=== PATIENT | male | born 1945 | race American Indian/Alaskan Native ===

== ENCOUNTER 2018-02-23 09:54 | Outpatient (CLI) | payer MEDICARE ==
--- NOTE | 2018-02-24 12:26 | Vascular Lab Report ---
FINAL REPORT EXAM: VL RENAL VASCULATURE HISTORY: RENAL ARTERY DUPLEX, CHRONIC KIDNEY DIDEASE STAGE 2 COMPARISON: None. TECHNIQUE: Duplex Doppler ultrasound of the renal arteries and aorta was performed. FINDINGS: The right kidney measures 10.2 centimeters in length and is normal in morphology. There is normal cor tical thickness. There is no hydronephrosis. There is no echogenic focus or mass. The left kidney is poorly visualized and is very echogenic. The aorta is normal in appearance. There are normal waveforms of the main right renal artery with sharp systolic upstrokes. Peak systoli c velocity is 82.7 centimeters/ second. There are normal waveforms of the main left renal artery with sharp systolic upstrokes. Peak systolic velocity is 74.4 centimeters/second. Peak systolic velocity of the aorta is 35.4 centimeters/second. The peak systolic velocity ratio between the right renal artery and the aorta is 2.33. The peak systolic velocity ratio between the left renal artery and the aorta is 2.1. IMPRESSION: No ultrasound criteria for renal artery stenosis. Echogenic and poorly visualized left kidney, likely due to chronic renal disease.
== END 2018-02-23 09:55 | disposition home or self-care (01) ==
LOC: VAS 09:54
PROVIDERS: ATTEND Internal Medicine Nephrology
DX: N18.2 Chronic kidney disease, stage 2 (mild) (principal)
CPT/HCPCS: 93975